=== PATIENT | male | born 1945 | race Caucasian/White ===

== ENCOUNTER 2016-10-04 07:01 | Emergency (ER) | payer MEDICARE ==
[~2016-10-04] VITALS: Ht 182.9 cm; Wt 72.5 kg
[2016-10-04 07:51] VITALS: BP 178/102
== END 2016-10-04 10:44 | disposition left against medical advice (07) ==
LOC: EMS 07:02
DX: Z53.21 Procedure and treatment not carried out due to patient leaving prior to being seen by health care provider (principal)